=== PATIENT | male | born 1970 | race Caucasian/White ===

== ENCOUNTER → 2019-04-13 16:58 | Outpatient (CLI) | payer MEDICAID, SELFPAY ==
[2019-04-13 17:33] LABS: Basophils # 0.1 K/mm3 (0-0.2); Basophils % 0.8 % (0.1-2.0); Eosinophils # 0.3 K/mm3 (0.0-0.4); Eosinophils % 3.9 % (0.1-12.0); Hematocrit 50.4 % (42.0-52.0); Hemoglobin 16.5 g/dL (14.1-18.0); Lymphocytes # 2.8 K/mm3 (0.7-4.5); Lymphocytes % 35.2 % (10-50); Mean Corpuscular HGB Conc 32.8 g/dL (31.8-35.4); Mean Corpuscular Hemoglobin 32.1 pg (27.0-31.2); Mean Corpuscular Volume 97.8 fl (80-94); Mean Platelet Volume 8.2 fl (7.4-10.4); Monocytes # 0.7 K/mm3 (0.1-1.0); Monocytes % 9.1 % (1.7-9.3); Neutrophils # 4.1 K/mm3 (1.8-7.8); Neutrophils % 51.1 % (37.0-80.0); Platelet Count 288 K/mm3 (142-424); Red Blood Count 5.15 M/mm3 (4.60-6.20); Red Cell Distribution Width 12.7 % (11.5-17.5)
[2019-04-13 18:30] LABS: Alanine Aminotransferase 31 U/L (12-78); Albumin Level 3.5 gm/dL (3.4-5.0); Alkaline Phosphatase 94 U/L (46-116); Anion Gap 12.2 mEq/L (5-15); Aspartate Amino Transferase 20 U/L (15-37); Bilirubin,Total 0.4 mg/dL (0.2-1.0); Blood Urea Nitrogen 13 mg/dL (7-18); Carbon Dioxide 30 mmol/L (21.0-32.0); Chloride 104 mmol/L (98-107); Chol/HDL Ratio 5.2 (1-3.5); Cholesterol 250 mg/dL (140-200); Creatinine,Serum 0.95 mg/dL (0.70-1.30); Estimated Glomerular Filt Rate 84 ml/min (>60); GFR (African American) 102 ML/MIN (>60); Globulin 3.5 gm/dl (1.3-3.2); Glucose 108 mg/dL (74-106); HDL Cholesterol 48 mg/dL (27-67); LDL Cholesterol 142 mg/dL (0-130); Potassium 4.2 mmoL/L (3.5-5.1); Sodium 142 mmol/L (136-145); T4 (Thyroxine) 8.7 ug/dl (4.7-13.3); Thyroid Stimulating Hormone 1.55 uIU/ml (0.358-3.740); Triglycerides 301 mg/dL (30-200); VLDL Cholesterol 60 mg/dL (0-40)
[2019-04-15 12:31] LABS: PSA, Free 0.05 ng/mL; Prostate Specific Ag 0.2 ng/mL (0.0-4.0); Vitamin D 25 Hydroxy 11.1 ng/mL (30.0-100.0)
== END ==
PROVIDERS: Visit Provider Nurse Practitioner Family
DX: I10 Essential (primary) hypertension (principal); E55.9 Vitamin D deficiency, unspecified; M54.16 Radiculopathy, lumbar region; G89.29 Other chronic pain; F17.200 Nicotine dependence, unspecified, uncomplicated; Z79.899 Other long term (current) drug therapy; Z12.5 Encounter for screening for malignant neoplasm of prostate
CPT/HCPCS: 80053; 80061; 82652; 84153; 84154; 84436; 84443; 85025

== ENCOUNTER → 2020-06-01 06:12 | Outpatient (CLI) | payer MEDICAID, SELFPAY ==
--- NOTE | 2020-06-01 | CA_ITS ---
APPROVED REPORT Exam: Exercise Treadmill Technologist: Allie Anne, Ht: 5 ft 7 in Wt: 259 lbs BSA: 2.26 m2 HR: 80 bpm BP: 131/84 mmHg Rhythm: NSR,RBBB Medical History Medical History: HTN, Hyperlipidemia, Smoking Medications: Gabapentin,,,,, Atorvastatin,,,,, Lisinopril/HCTZ,,,,, Vit D3,,,,, Suboxone,,,,, Allergies: No known drug allergies Cardiac Risk Factors: HTN, Hyperlipidemia, Smoking, FHX of CAD Stress Test Details Test: Jc HR Resting HR: 88 bpm Max Heart Rate (APMHR): 169.959926 bpm Max HR Achieved: 160 bpm Target HR (85% APMHR): 143.601616 bpm % of APMHR: 94.67 BP Resting BP: 131/84 mmHg Max BP: 215/80 mmHg Recovery BP: 176.0/88.0 mmHg ECG Resting ECG: NSR,RBBB Clinical Exercise duration: 07:00 min Highest Stage Achieved: Exercise capacity: 10.1 METs Stress ECG Conclusion EXERCISED 7:00 PN JC PROTOCOL WITH MAX HEART RATE 152 BPM WHICH IS 90% OF PM FOR AGE. MAX BP 215/80. METS = 10.1. TEST STOPPED DUE TO SOA AND LEG FATIGUE. NO CP. NO ARRHYTHMIAS/ECTOPY. WITHIN NORMAL ST RESPONSE TO EXERCISE. NORMAL GXT WITH REDUCED SENSITIVITY DUE TO BASELINE RBBB. MYOVIEW IMAGES REPORTED SEPARATELY. Test Summary . Sitting . . . . . . Cardiolite injected . Stop exercise at 07:00 . . . . . . Electronically signed by : Bo Sandoval, 06/01/2020 12:01:45
--- NOTE | 2020-06-01 06:13 | NM_ITS ---
APPROVED REPORT Exam: Nuclear Stress Test Indication: Chest pain..short of breath..palpitation..fatigue Patient Location: Outpatient Stress Tech: Sarah Omid LA Tech:ANGELES Golden RT(R)(N) Ht: 5 ft 7 in Wt: 250 lbs HR: 80 bpm BP: 131/84 mmHg BSA: 2.22 m2 BMI: 39.1 History: Chest pain..short of breath..palpitation..fatigue Procedure: Patient exercised on Jc protocol 7 minutes and sec, resting heart rate 80 bpm, resting blood pressure 131/84 mmHg, with exercise maximum heart rate achived was 152 bpm which is 90 % of the maximum predicted heart rate and blood pressure was 215/80 mmHg. Patient denied any complaint of chest pain. Patient has Good exercise capacity, achieved 10.1 METs of workload on treadmill, the blood pressure response to exercise was Hypertensive. Electrocardiogram Resting electrocardiogram showed sinus rhythm right bundle branch block, with exercise there is less than 1.[address] segment depression noted from the baseline EKG. The EKG portion of the exercise Myoview is negative for ischemia. Cardiac Stress and Resting SPECT Images: Cardiac Stress and Resting SPECT images were obtained using technetium 99m Myoview 29.8 mCi stress and 10.52 mCi at rest. Gated SPECT for analysis of segmental wall motion and calculation of the ejection fraction also done, prone images were also obtained. Cardiac stress and resting SPECT images show uniform myocardial activity without segmental perfusion abnormality, computer derived ejection fraction is 60% with no regional wall motion abnormality, right ventricle is mildly enlarged with normal contractility. Conclusion: 1. The EKG portion of the exercise Myoview is negative for ischemia, patient has good exercise capacity achieved 10.1 mets of workload on treadmill, the blood pressure response to exercise was hypertensive, there was no exercise-induced chest discomfort. 2. No scintigraphic evidence of reversible ischemia seen, computer derived ejection fraction is 60% with no regional wall motion abnormality, right ventricle is mildly enlarged with normal contractility. 3. Normal exercise Myoview study. Electronically signed by : Bo Sandoval, 06/01/2020 12:07:56
--- NOTE | 2020-06-01 09:01 | HMH.ITSHM ---
Current Home Medications as stated by this patient Travis Maldonado SR or home office representative. [] lisinopril gabapentin atorvastatin
== END ==
PROVIDERS: PCP Nurse Practitioner Family; Visit Provider Nurse Practitioner Family
DX: R07.9 Chest pain, unspecified (principal); R06.02 Shortness of breath; R53.83 Other fatigue; Z82.49 Family history of ischemic heart disease and other diseases of the circulatory system
CPT/HCPCS: 78452; 93017; 93306; A9502

== ENCOUNTER → 2020-06-09 10:50 | Outpatient (CLI) | payer MEDICAID, SELFPAY ==
--- NOTE | 2020-06-09 10:50 | CA_ITS ---
APPROVED REPORT EXAM: Comprehensive 2D, Doppler, and color-flow Echocardiogram Mobile Mechanic: Kristen Whitmore RT(R) Ht: 5 ft 7 in Wt: 250lbs BSA: 2.22 BP: 131/84 mmHg Indications: CP, fatigue, SOB, weight gain 2D Dimensions LVOT 2.04 cm (M/F) 1.5-2.5 LVEF (Floyd's) 64.00 % M: 52 - 72 LV Volume 91.20 mL M: 62 - 150 LV Volume Index 41.08 mL/m2 M: 34 - 74 M-Mode Dimensions RVDd 2.82 cm (0.9-2.6) LA Diam 3.83 cm (1.9-4.0) LVDd 4.67 cm (3.5-5.7) Ao Diam 3.07 cm (2.0-3.7) LVDs 3.34 cm (3.5-5.7) IVSd 1.17 cm (0.6-1.1) PWd 0.81 cm (0.6-1.1) EF (Teich) 55.00% FS 28.50% EDV (Teich) 100.80 mL ESV (Teich) 45.40 mL LV Diastology E Decel Time 150.00 (160-240 msec) E/A Ratio 0.7 MED E' 10.30 (< 7 cm/sec) E'/MED E' Ratio 6.66 (>14) LAT E' 11.10 (<10 cm/sec) E/LAT E' Ratio 6.18 (>14) Mitral Valve MV E Max Ronaldo. 69.00 (40-130 cm/s) MV A Velocity 96.00 (40-130 cm/s) E/A Ratio 0.71 MV Decel. Time 150.00 (160-240 ms) MV PHT 44.00 ms Left Ventricle Left atrium is normal size, left ventricle is normal size, there is no concentric left ventricular hypertrophy, visually estimated ejection fraction 55% with no regional wall motion abnormality, diastolic parameters are inconclusive. Right Ventricle Right atrium and right ventricle are normal size and contractility. Aortic Valve Aortic valve is grossly normal, there is no aortic stenosis or aortic insufficiency. Mitral Valve Mitral valve is grossly normal, there is trace mitral regurgitation. Tricuspid Valve Tricuspid valve grossly normal, there is trace tricuspid regurgitation, tricuspid regurgitation jet velocity is inadequate for calculation of the right ventricular systolic pressure. Pulmonic Valve Pulmonic valve is poorly visualized. Great Vessels Aortic root is normal size. Pericardium No significant pericardial effusion noted. Conclusion 1. Normal left ventricular size, preserved left ventricular systolic function, visually estimated ejection fraction 55% with no regional wall motion abnormality, diastolic parameters are inconclusive. 2. Trace mitral and tricuspid regurgitation. 3. No significant pericardial effusion noted. Electronically signed by : Bo Sandoval, 06/09/2020 15:28:24
== END ==
PROVIDERS: PCP Nurse Practitioner Family; Visit Provider Nurse Practitioner Family
DX: R07.9 Chest pain, unspecified (principal); I10 Essential (primary) hypertension; R53.83 Other fatigue
CPT/HCPCS: 93306

== ENCOUNTER → 2020-06-20 08:48 | Outpatient (CLI) | payer MEDICAID, SELFPAY ==
--- NOTE | 2020-06-20 08:55 | XR_ITS ---
PROCEDURE: XR WRIST RT MIN 3V CLINICAL INDICATION: right wrist pain/ CTS COMPARISON: No exams were available for comparison FINDINGS: No acute fractures or dislocations. Bone density is normal. The distal radioulnar and radiocarpal alignment are within normal limits. No evidence of erosive changes or significant degenerative changes. There is minor soft tissue swelling adjacent to the wrist joint. IMPRESSION: Minor soft tissue swelling adjacent to the wrist joint. No other acute abnormality. Dictated by: Claudine Wong 06/20/2020 11:22 Claudine Wong in OV 06/20/2020 11:22
--- NOTE | 2020-06-20 08:55 | XR_ITS ---
PROCEDURE: XR WRIST LT MIN 3V CLINICAL INDICATION: left wrist pain/ CTS COMPARISON: No exams were available for comparison FINDINGS: No acute fractures or dislocations. Bone density is normal. Minor degenerative changes of the distal radioulnar joint without osteophyte formation. Radiocarpal alignment is within normal limits. No evidence of erosions are noted. The carpal bones are unremarkable. Minor soft tissue swelling adjacent to the wrist joint. IMPRESSION: Minor soft tissue swelling adjacent to the wrist joint. Minor degenerative changes. Dictated by: Claudine Wong 06/20/2020 11:23 Claudine Wong in OV 06/20/2020 11:23
== END ==
PROVIDERS: PCP Nurse Practitioner Family; Visit Provider Orthopaedic Surgery
DX: M25.532 Pain in left wrist (principal); M25.531 Pain in right wrist; R20.0 Anesthesia of skin; R20.2 Paresthesia of skin
CPT/HCPCS: 73110

== ENCOUNTER → 2021-03-20 18:11 | Outpatient (CLI) | payer MEDICAID, SELFPAY ==
[2021-03-20 19:08] LABS: Basophils # 0.1 K/mm3 (0-0.2); Basophils % 1.3 % (0.1-2.0); Eosinophils # 0.4 K/mm3 (0.0-0.4); Eosinophils % 3.9 % (0.1-12.0); Hematocrit 53.2 % (42.0-52.0); Hemoglobin 17.2 g/dL (14.1-18.0); Lymphocytes % 30.2 % (10-50); Mean Corpuscular HGB Conc 32.4 g/dL (31.8-35.4); Mean Corpuscular Hemoglobin 30.5 pg (27.0-31.2); Mean Corpuscular Volume 94.2 fl (80-94); Mean Platelet Volume 8.4 fl (7.4-10.4); Monocytes # 0.8 K/mm3 (0.1-1.0); Monocytes % 7.8 % (1.7-9.3); Neutrophils # 5.7 K/mm3 (1.8-7.8); Neutrophils % 56.8 % (37.0-80.0); Platelet Count 304 K/mm3 (142-424); Red Blood Count 5.64 M/mm3 (4.60-6.20); Red Cell Distribution Width 13.4 % (11.5-17.5)
[2021-03-20 20:04] LABS: Alanine Aminotransferase 28 U/L (12-78); Albumin Level 4.3 g/dl (3.5-5.0); Albumin/Globulin Ratio 1.4 (1.1-1.8); Alkaline Phosphatase 101 U/L (38-126); Anion Gap 12.2 mEq/L (5-15); Aspartate Amino Transferase 31 U/L (17-59); Bilirubin,Total 0.3 mg/dl (0.2-1.3); Blood Urea Nitrogen 13 mg/dl (9-20); Calcium 9.6 mg/dl (8.4-10.2); Carbon Dioxide 26 mmol/L (22.0-30.0); Chloride 103 mmol/L (98-107); Chol/HDL Ratio 6.3 (1-3.5); Cholesterol 246 mg/dl (140-200); Estimated Glomerular Filt Rate 141 ml/min (>60); GFR (African American) 171 ML/MIN (>60); Globulin 3.1 g/dL (1.3-3.2); Glucose 98 mg/dl (74-100); HDL Cholesterol 39 mg/dl (40-60); Potassium 4.2 mmoL/L (3.5-5.1); Sodium 137 mmol/L (136-145); Total Protein,Serum 7.4 g/dl (6.3-8.2); Triglycerides 384 mg/dl (30-150); VLDL Cholesterol 77 mg/dL (0-40)
[2021-03-20 20:21] LABS: 25-OH Vitamin D, Total 41.2 ng/mL (30-100)
[2021-03-20 20:23] LABS: T4 (Thyroxine) 9.3 ug/dl (5.53-11.0)
[2021-03-20 20:37] LABS: Prostate Specific Ag Screen 0.3 ng/ml (0.0-4.0); Thyroid Stimulating Hormone 1.09 uIU/mL (0.465-4.68)
[2021-03-20 22:16] LABS: Benzodiazepines Screen,Urine Negative ng/ml (<200)
[2021-03-20 22:18] LABS: Cannabinoid Screen,Urine Negative ng/ml (<50); Methadone Screen,Urine Negative ng/ml (<300)
[2021-03-20 22:19] LABS: Cocaine Screen,Urine Negative ng/ml (<300); Opiate Screen,Urine Negative ng/ml (<300)
[2021-03-20 22:20] LABS: Phencyclidine Screen,Urine Negative ng/ml (<25)
[2021-03-20 22:23] LABS: Amphetamine/Metha Screen,Urine Negative ng/ml (<1000); Barbiturates Screen,Urine Negative ng/ml (<200)
== END ==
PROVIDERS: Visit Provider Nurse Practitioner Family
DX: E66.9 Obesity, unspecified (principal); Z68.41 Body mass index [BMI] 40.0-44.9, adult
CPT/HCPCS: 80053; 80061; 80305; 82306; 84436; 84443; 85025; G0103

== ENCOUNTER 2022-07-28 15:19 | Emergency (ER) | payer MEDICAID, SELFPAY ==
--- NOTE | 2022-07-28 15:26 | XR_ITS ---
PROCEDURE INFORMATION: Exam: XR Right Knee Exam date and time: 07/28/2022 3:51 PM Age: 52 years old Clinical indication: Injury or trauma; Other: Twisted knee yesterday; Work related; Blunt trauma; Patient HX: Injured right knee one month ago, twisted right knee yesterday. ; Additional info: Pain TECHNIQUE: Imaging protocol: Radiologic exam of the right knee. Views: 3 views. COMPARISON: No relevant prior studies available. FINDINGS: Bones/joints: Small suprapatellar effusion. Soft tissues: Mild soft tissue swelling superficial to the medial knee compartment. IMPRESSION: No evidence of acute osseous injury.
[2022-07-28 16:24] VITALS: BP 131/84; PULSE 83; RESP 16; TEMP 36.7; O2SAT 97; BMI 36.0
--- NOTE | 2022-07-28 17:04 | EXP.UTC ---
Discharge Plan Disposition Patient Disposition: Home, Self-Care Condition: Good Prescriptions Prescriptions: No Action gabapentin 600 mg tablet 600 mg PO TID 30 Days Qty: 90 3RF buprenorphine-naloxone [Suboxone] 8-2 mg film 1 film BUCCAL DAILY ergocalciferol (vitamin D2) 1,250 mcg (50,000 unit) capsule See Rx Instructions .ROUTE .COMPLEX Qty: 7 3RF Dose Instruction: TAKE ONE CAPSULE BY MOUTH EVERY WEEK Rx Instructions: TAKE ONE CAPSULE BY MOUTH EVERY WEEK cholecalciferol (vitamin D3) 50 mcg (2,000 unit) capsule 2,000 unit PO DAILY Qty: 90 2RF tamsulosin [Flomax] 0.4 mg capsule 0.4 mg PO DAILY Qty: 90 2RF phentermine [Adipex-P] 37.5 mg tablet 37.5 mg PO DAILY 30 Days Qty: 30 0RF Rx Instructions: must administer 30 minutes before or 1-2 hours after breakfast Referrals Follow up/Referrals: Vignesh Arias APRN [Primary Care Provider] - See instructions Activity Restrictions/Add. Instructions Additional Instructions/Restrictions: Weightbearing as tolerated rest Ice with cold pack for 20 minutes remove may repeat for comfort every hour Elevate with leg above your heart as much as possible to help reduce swelling and therefore pain Ibuprofen every 6 hours as needed for pain or inflammation. If needs something more you can take Tylenol every 4 hours as needed as long as her primary care has told he was okayed for you to take both. If improving any do not need to follow-up you can bring begin exercising 2-3 weeks after injury. Follow-up immediately if new or worsening symptoms or no noticeable improvement over the next 3-5 days. call ortho Clinical Impressions Clinical Impression: Acute knee pain Instructions Patient Instructions: DI for Knee Pain Discharge ED Provider: Juan José ([facility] [place])M[facility] [place] HPI General Stated complaint: [id number] right knee pain Mode of Arrival: Ambulatory Source of Information: Patient Limitations: No Limitations Time Seen by Provider: 07/28/22 17:05 Description of Symptoms (Recalled from Triage Doc. by RN): rt knee pain, pt states he twisted his knee yesterday and having pain. pt states he did the same thing about a month ago and thinks he flared it up HEENT Symptoms (Recalled from RN notes): No Resp Symptoms (Recalled from RN notes): No Skin Symptoms (Recalled from RN notes): No MS Symptoms (Recalled from RN notes): Yes Functional Status (Recalled from RN notes): wnl History of Present Illness Provider Complaint: 52 yr old male presents for rt knee pain, pt states he twisted his knee yesterday and having pain. pt states he did the same thing about a month ago and thinks he flared it up Related Data Home Medications Medication Instructions Recorded Confirmed buprenorphine 8 mg-naloxone 2 mg 1 film buccal DAILY 04/13/19 07/05/22 sublingual film (Suboxone) Previous Rx's Medication Instructions Recorded ergocalciferol (vitamin D2) 1,250 See Rx Instructions .Route 08/24/21 mcg (50,000 unit) capsule .COMPLEX #7 caps cholecalciferol (vitamin D3) 50 2,000 unit PO DAILY #90 caps 03/11/22 mcg (2,000 unit) capsule tamsulosin 0.4 mg capsule (Flomax) 0.4 mg PO DAILY #90 caps 03/11/22 gabapentin 600 mg tablet 600 mg PO TID 30 days #90 tabs 06/07/22 phentermine 37.5 mg tablet 37.5 mg PO DAILY 30 days #30 tabs 07/05/22 (Adipex-P) Allergies Allergy/AdvReac Type Severity Reaction Status Date / Time No Known Allergies Allergy Verified 07/28/22 16:27 Worker's Comp Is this a Worker's Comp case?: No [facility] Disclaimer: The information contained in this section may have been updated after the patient was seen, as this information can be updated by other users. Social History , GUITAR TEACHER) Smoking Status: Current every day smoker tobacco type: cigarettes packs per day: 1 alcohol intake: former substance use type: opiates current occupational status: other Travel in the last
[2022-07-28 17:20] VITALS: BP 131/84; PULSE 83; RESP 16; TEMP 36.7
== END 2022-07-28 17:21 | disposition home or self-care (01) ==
PROVIDERS: Emergency Provider Nurse Practitioner Family; PCP Nurse Practitioner Family
DX: M25.561 Pain in right knee (principal); F17.210 Nicotine dependence, cigarettes, uncomplicated; X50.1XXA Overexertion from prolonged static or awkward postures, initial encounter
CPT/HCPCS: 73562; 99212; 99214; G0463

== ENCOUNTER → 2022-08-01 23:30 | Outpatient (CLI) | payer MEDICAID, SELFPAY ==
[2022-08-01 18:11] LABS: Basophils # 0.1 K/mm3 (0-0.2); Basophils % 0.7 % (0.1-2.0); Eosinophils # 0.3 K/mm3 (0.0-0.4); Eosinophils % 4.1 % (0.1-12.0); Hematocrit 50.3 % (42.0-52.0); Hemoglobin 16.6 g/dL (14.1-18.0); Lymphocytes # 2.7 K/mm3 (0.7-4.5); Lymphocytes % 33.1 % (10-50); Mean Corpuscular Volume 93.9 fl (80-94); Mean Platelet Volume 7.7 fl (7.4-10.4); Monocytes # 0.6 K/mm3 (0.1-1.0); Monocytes % 7.4 % (1.7-9.3); Neutrophils # 4.4 K/mm3 (1.8-7.8); Neutrophils % 54.7 % (37.0-80.0); Platelet Count 290 K/mm3 (142-424); Red Blood Count 5.35 M/mm3 (4.60-6.20); Red Cell Distribution Width 12.6 % (11.5-17.5); White Blood Count 8.1 K/mm3 (4.8-10.8)
[2022-08-01 18:24] LABS: Alanine Aminotransferase 26 U/L (12-78); Albumin Level 4.4 g/dl (3.5-5.0); Albumin/Globulin Ratio 1.4 (1.1-1.8); Alkaline Phosphatase 81 U/L (38-126); Anion Gap 18.7 mEq/L (5-15); Aspartate Amino Transferase 35 U/L (17-59); Bilirubin,Total 1.3 mg/dl (0.2-1.3); Blood Urea Nitrogen 12 mg/dl (9-20); Calcium 9.2 mg/dl (8.4-10.2); Carbon Dioxide 25 mmol/L (22.0-30.0); Chloride 98 mmol/L (98-107); Chol/HDL Ratio 4.4 (1-3.5); Cholesterol 219 mg/dl (140-200); Estimated Glomerular Filt Rate 118 ml/min (>60); GFR (African American) 143 ML/MIN (>60); Globulin 3.1 g/dL (1.3-3.2); Glucose 87 mg/dl (74-100); HDL Cholesterol 50 mg/dl (40-60); Potassium 4.7 mmoL/L (3.5-5.1); Sodium 137 mmol/L (136-145); Total Protein,Serum 7.5 g/dl (6.3-8.2); Triglycerides 121 mg/dl (30-150); VLDL Cholesterol 24 mg/dL (0-40)
[2022-08-01 18:35] LABS: Direct LDL Cholesterol 141.11 mg/dL (100-129)
[2022-08-01 18:42] LABS: 25-OH Vitamin D, Total 40.4 ng/mL (30-100)
[2022-08-01 18:55] LABS: Prostate Specific Ag Screen 0.3 ng/ml (0.0-4.0)
[2022-08-09 19:09] LABS: Testosterone, Total, LC/MS 356 ng/dL (.)
== END ==
PROVIDERS: PCP Nurse Practitioner Family; Visit Provider Nurse Practitioner Family
DX: I10 Essential (primary) hypertension (principal); R53.83 Other fatigue; M25.561 Pain in right knee; S89.90XA Unspecified injury of unspecified lower leg, initial encounter; E66.9 Obesity, unspecified; Z68.35 Body mass index [BMI] 35.0-35.9, adult; Z12.5 Encounter for screening for malignant neoplasm of prostate
CPT/HCPCS: 80053; 80061; 82306; 84403; 84443; 85025; G0103

== ENCOUNTER → 2022-08-14 14:52 | Outpatient (CLI) | payer MEDICAID, SELFPAY ==
--- NOTE | 2022-08-14 14:52 | MR_ITS ---
FINAL REPORT TECHNIQUE: Multiplanar imaging of the right knee was obtained. CLINICAL HISTORY: R Knee pain injury 6-7 weeks ago felt knee give on lateral side swelling and popping when walking COMPARISON: No previous. FINDINGS: On the sagittal images, anterior and posterior cruciate ligaments appear intact. Quadriceps and patellar tendons appear intact. There is rather extensive abnormal signal identified within the anterior and posterior horns of the lateral meniscus. Large linear tear seen in the posterior horn of the medial meniscus. Linear tear in the posterior horn medial meniscus extends to the margin of the meniscus. Note is made of a minimal osteochondral lesion along the anterior articular surface of the medial femoral condyle, best seen on image #18 of series 6. Medial and lateral collateral ligaments appear intact. Moderate joint effusion is present. Moderate popliteal cyst is present. Popliteal cyst measures approximately 5.9 cm in craniocaudal dimension. IMPRESSION: 1. Full thickness tear posterior horn medial meniscus. 2. Intrasubstance degeneration throughout lateral meniscus. 3. Moderate joint effusion with associated popliteal cyst. Authenticated and ERN
== END ==
PROVIDERS: PCP Nurse Practitioner Family; Visit Provider Nurse Practitioner Family
DX: M25.561 Pain in right knee (principal)
CPT/HCPCS: 73721

== ENCOUNTER → 2022-08-28 15:37 | Outpatient (CLI) | payer MEDICAID, SELFPAY ==
--- NOTE | 2022-08-28 15:41 | XR_ITS ---
FINAL REPORT CLINICAL HISTORY: Pre- op for meniscus tear in knee, hx of high bp, smokes 1 pk per day FINDINGS: There is no evidence of effusion or other pleural disease. The mediastinum has a normal appearance. The cardiac silhouette is unremarkable. IMPRESSION: Unremarkable chest exam. Reviewed, Interpreted and Dictated by Svetlana Cheatham MD Transcribed by Lisa Velazquez Authenticated and . [facility]
--- NOTE | 2022-08-28 16:04 | ECG_ITS ---
APPROVED REPORT Exam: Resting ECG HR:74 bpm ECG Measurements Heart Rate 74 AXES AR 223 P -16 QRSd 162 QRS 116 QT 415 T 12 QTc 442 Conclusion SINUS RHYTHM WITH FIRST DEGREE AV BLOCK RIGHT BUNDLE BRANCH BLOCK [120+ ms QRS DURATION, UPRIGHT V1, 40+ ms S IN I/aVL/V4/V5/V6] LEFT POSTERIOR FASCICULAR BLOCK [QRS AXIS > 109, INFERIOR Q] ABNORMAL ECG UNCONFIRMED REPORT Electronically signed by : Nicola Lao MD 08/29/2022 09:26:24
[2022-08-28 16:45] LABS: Basophils % 0.3 % (0.1-2.0); Eosinophils # 0.1 K/mm3 (0.0-0.4); Eosinophils % 0.5 % (0.1-12.0); Hematocrit 50.5 % (42.0-52.0); Hemoglobin 16.4 g/dL (14.1-18.0); Lymphocytes # 1.8 K/mm3 (0.7-4.5); Lymphocytes % 18.9 % (10-50); Mean Corpuscular HGB Conc 32.6 g/dL (31.8-35.4); Mean Corpuscular Hemoglobin 30.2 pg (27.0-31.2); Mean Corpuscular Volume 92.8 fl (80-94); Mean Platelet Volume 7.7 fl (7.4-10.4); Monocytes # 0.5 K/mm3 (0.1-1.0); Monocytes % 4.9 % (1.7-9.3); Neutrophils % 75.5 % (37.0-80.0); Platelet Count 309 K/mm3 (142-424); Red Blood Count 5.44 M/mm3 (4.60-6.20); Red Cell Distribution Width 13.2 % (11.5-17.5); White Blood Count 9.3 K/mm3 (4.8-10.8)
[2022-08-28 16:49] LABS: Alanine Aminotransferase 27 U/L (12-78); Albumin Level 4.2 g/dl (3.5-5.0); Albumin/Globulin Ratio 1.4 (1.1-1.8); Alkaline Phosphatase 85 U/L (38-126); Anion Gap 14.3 mEq/L (5-15); Aspartate Amino Transferase 26 U/L (17-59); Bilirubin,Total 0.6 mg/dl (0.2-1.3); Blood Urea Nitrogen 15 mg/dl (9-20); Calcium 9.2 mg/dl (8.4-10.2); Carbon Dioxide 28 mmol/L (22.0-30.0); Chloride 101 mmol/L (98-107); Estimated Glomerular Filt Rate 141 ml/min (>60); GFR (African American) 171 ML/MIN (>60); Glucose 131 mg/dl (74-100); Potassium 4.3 mmoL/L (3.5-5.1); Sodium 139 mmol/L (136-145); Total Protein,Serum 7.2 g/dl (6.3-8.2)
[2022-08-28 16:59] LABS: Hemoglobin A1C 5.9 % (4.0-6.0)
== END ==
PROVIDERS: PCP Nurse Practitioner Family; Visit Provider Orthopaedic Surgery
DX: Z01.818 Encounter for other preprocedural examination (principal); S83.241A Other tear of medial meniscus, current injury, right knee, initial encounter
CPT/HCPCS: 36415; 71046; 80053; 83036; 85025; 93005

== ENCOUNTER 2022-09-03 09:58 | Day surgery (SDC) | payer MEDICAID, SELFPAY ==
[2022-09-02 09:13] VITALS: BMI 35.2
[2022-09-03] VITALS (10 sets, daily range): BP systolic 144–165; BP diastolic 74–101; PULSE 18–84; RESP 14–18; TEMP 36.3–43; O2SAT 93–97
--- NOTE | 2022-09-03 10:53 | EXP.ANES.CKL ---
[facility] Disclaimer: The information contained in this section may have been updated after the patient was seen, as this information can be updated by other users. Medical History (Updated 09/02/22 @ 09:06 by Lay Quinones RN) Benign prostatic hyperplasia Hyperlipidemia Hypertension Surgical History (Updated 09/02/22 @ 09:07 by Lay Quinones RN) No significant past surgical history Family History (Updated 09/02/22 @ 09:07 by Lay Quinones RN) Father Family history of myocardial infarction Social History (Updated 09/02/22 @ 09:08 by Lay Quinones RN) Smoking Status: Current every day smoker tobacco type: cigarettes packs per day: 1 alcohol intake: former substance use type: opiates current occupational status: employed Travel in the last 8 weeks: None [facility] Anesthesia Checklist Patient Identification Patient Identification: Arm Band Structural Data Admitted From: Home Planned Operative Procedure/s: Right Knee Arthroscopy, Partial Medial Meniscectomy Consent for Planned Operative Procedure(s) Verified: Yes Verified Documents: Surgical Consent and History and Physical NPO Status Verified Time NPO: 00:00 Additional verifications Anesthesia Reactions: No Hx Blood Transfusions: No Blood Transfusion Reaction: No Airway Assessment C-Spine Mobility Assessed: Yes TMJ Mobility Assessed: Yes Dentition: Dentures-good fit (removed) Neurological Assessment Level of Consciousness: Awake and Alert Anesthesia Plan Anesthesia Risk discussed: Yes Anesthesia Plan: Verified ASA Class: II Anesthesia Type: General
--- NOTE | 2022-09-03 12:39 | EXP.OP.NOTE ---
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 History and exam consistent with an acute medial meniscus tear as seen on MRI. He has been dealing with medial knee pain and mechanical symptoms. Right knee MRI on 08/14 revealed a large horizontal cleavage tear posterior horn and body of the medial meniscus with mild degenerative changes and a moderate effusion. We discussed all the risks, benefits and alternatives to right knee arthroscopy for partial medial meniscectomy. He agreed to proceed and surgical consent form was signed. Operative findings:: Right knee horizontal cleavage tear posterior horn and body medial meniscus. 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 Undersurface flap tear posterior horn of the lateral meniscus as well. Operative note:: The patient was seen in the preoperative holding area. The right knee was marked to confirm the correct operative site. He was seen by anesthesia. He received Ancef 2 g IV prophylactic antibiotics within 1 hour of incision time. He was brought back to the OR. General anesthesia induced without difficulty. Right lower extremity prepped and draped in the usual sterile fashion. Timeout performed to confirm right knee arthroscopy for patient Travis Maldonado. I made an anterior lateral viewing portal with an 11 blade scalpel and arthroscope was introduced in the knee joint. I then made an anteromedial portal localizing this with a spinal needle. This incision was made with an 11 blade scalpel as well and dilated with a trocar. Diagnostic arthroscopy commenced. He was seen to have some mild chondromalacia of the patellofemoral compartment with no full-thickness cartilage loss. There were a lot of loose cartilage pieces in the lateral gutter that were sucked up with a 4.0 mm shaver. Evaluation of the medial compartment revealed a large horizontal cleavage tear posterior horn and body of the medial meniscus. This was treated with the shaver and a resector removing the unstable inferior flap and resecting the posterior horn back to a smooth stable border. This involved removing approximately inner third to half of the posterior horn of the medial meniscus with a smooth transition to intact body the medial meniscus. He also had an area of grade III-IV chondromalacia of the central aspect the medial femoral condyle. The unstable cartilage flaps at the edges of this were debrided with a shaver back to smooth stable border. Cruciate ligaments were seen to be intact. He was placed in the [id number] position and we entered the lateral compartment. The lateral compartment had minimal chondromalacia but there was an undersurface flap tear of the posterior horn of the lateral meniscus. We removed this undersurface flap tear with the 4.0 mm shaver back to a smooth stable border. There was some mild fraying otherwise on the inner edge of the lateral meniscus that was debrided with a shaver as well. At this time arthroscopy instruments were removed from the joint. Arthroscopy fluid suctioned and drained from the joint. Portals were closed with 4-0 Monocryl subcuticular sutures. I injected 20 cc of half percent Naropin from the superolateral approach for local anesthetic. A sterile dressing was applied with Steri-Strips, 4 x 4's, ABD, soft roll and an Polo bandage. Anesthesia was reversed without difficulty. Patient transferred to recovery in stable condition. All sponge and needle counts correct x2. Postoperative plan: He wants to fanny
--- NOTE | 2022-09-03 12:43 | P.PNANES_ITS ---
[facility] Anesthesia Record Part I Anesthesia Record I Intake, IV Amount: 500 Estimated blood loss (mL): 40 Urine output (mL): 0 Blood Pressure: 160/101 SaO2: 93 Pulse Rate: 18 Respiratory Rate: 18 Temperature: 97.4 F Patient is:: Drowsy and Stable Stable to PACU at:: 12:35
--- NOTE | 2022-09-04 07:26 | EXP.ANES.II ---
[facility] Anesthesia Record Part II Anesthesia Record Part II Discharge Time: 13:09 Destination: Surgical Day Care (OP Surgery) PACU nurse assessment reviewed?: Yes Patient Condition:: Good Anesthesia Complications:: None Swallowing reflex intact?: Yes Cyanosis?: No Blood Pressure: 147/85 Pulse Rate: 77 Temperature: 97.3 F Mental Status: Alert & Oriented Pain level:: 8 Nausea and/or vomitting:: None Intake, IV Amount: 0
[2022-09-04 07:27] VITALS: BP 147/85; PULSE 77; TEMP 36.3
== END 2022-09-03 13:38 | disposition home or self-care (01) ==
PROVIDERS: PCP Nurse Practitioner Family; Visit Provider Orthopaedic Surgery
PROC: (CPT 29870; principal; 2022-09-03 11:45)
DX: S83.281A Other tear of lateral meniscus, current injury, right knee, initial encounter (principal); S83.241A Other tear of medial meniscus, current injury, right knee, initial encounter; Y92.69 Other specified industrial and construction area as the place of occurrence of the external cause; W18.41XA Slipping, tripping and stumbling without falling due to stepping on object, initial encounter
CPT/HCPCS: 29880; 96374; J0131; J2405

== ENCOUNTER 2022-11-04 16:00 | Emergency (ER) | payer MEDICAID, SELFPAY ==
[2022-11-04 16:10] VITALS: BP 146/88; PULSE 84; RESP 18; TEMP 36.6; O2SAT 97; BMI 35.6
--- NOTE | 2022-11-04 16:19 | XR_ITS ---
PROCEDURE INFORMATION: Exam: XR Right Knee Exam date and time: 11/04/22 04:20 PM Age: 52 years old Clinical indication: Injury or trauma; Blunt trauma; Prior surgery; Surgery date: <1 month; Surgery type: Right knee arthroscopy prior to fall. TECHNIQUE: Imaging protocol: Radiologic exam of the right knee. Views: 3 views. COMPARISON: MR KNEE RT WO CON 08/14/22 02:58 PM FINDINGS: Bones/joints: Large suprapatellar effusion. Soft tissues: Normal. IMPRESSION: Large suprapatellar effusion.
--- NOTE | 2022-11-04 16:23 | EXP.UTC ---
Discharge Plan Disposition Patient Disposition: Home, Self-Care Condition: Good Prescriptions Prescriptions: New naproxen 500 mg tablet 500 mg PO BID PRN (Reason: pain) Qty: 20 0RF prednisone [prednisone] 20 mg tablet 20 mg PO BID 5 Days Qty: 10 0RF No Action buprenorphine-naloxone [Suboxone] 8-2 mg film 1 film BUCCAL DAILY gabapentin 600 mg tablet 600 mg PO TID phentermine [Adipex-P] 37.5 mg tablet 37.5 mg PO DAILY Rx Instructions: must administer 30 minutes before or 1-2 hours after breakfast tamsulosin [Flomax] 0.4 mg capsule 0.4 mg PO DAILY ergocalciferol (vitamin D2) 1,250 mcg (50,000 unit) capsule See Rx Instructions .ROUTE .COMPLEX Rx Instructions: TAKE ONE CAPSULE BY MOUTH EVERY WEEK cholecalciferol (vitamin D3) 50 mcg (2,000 unit) capsule 2,000 unit PO DAILY aspirin 325 mg tablet 325 mg PO DAILY Qty: 14 0RF Rx Instructions: Take w breakfast for 2 weeks starting 09/04 for DVT prophylaxis s/p R knee scope Referrals Follow up/Referrals: Vignesh Arias APRN [Primary Care Provider] - See instructions Activity Restrictions/Add. Instructions Additional Instructions/Restrictions: *weight bearing as tolerated *RICE, Rest the extremity, Ice 15-20 minutes 3-4 times daily, Compress- wear the polo wrap as discussed as much as possible to help reduce swelling and pain, Elevate the extremity when at rest *Polo wrap is for support and help control swelling, use it except in the shower. Be sure that is not to tight but not to loose either *Elevate when resting? *Naproxen every 12 hours as needed for pain an inflammation. If need something more can take Tylenol in between doses of Naproxen to help Immediately follow up with your family doctor for new or worsening of symptoms, or no noticeable improvement over the next 3-5 days Follow up with Orthopedics Dr ROBERTS Clinical Impressions Clinical Impression: Effusion of knee joint Qualifiers: Laterality: right Qualified Code(s): M25.461 - Effusion, right knee Instructions Patient Instructions: DI for Knee Effusion, How to Apply an Polo Wrap Discharge ED Provider: Alondra Villeda [facility] [place] General Stated complaint: [id number] right knee pain Mode of Arrival: Ambulatory Source of Information: Patient Limitations: No Limitations Time Seen by Provider: 11/04/22 16:23 Description of Symptoms (Recalled from Triage Doc. by RN): PATIENT C/O SWELLING TO RIGHT KNEE AFTER FALLING ON FRIDAY HEENT Symptoms (Recalled from RN notes): No Resp Symptoms (Recalled from RN notes): No Skin Symptoms (Recalled from RN notes): No MS Symptoms (Recalled from RN notes): Yes Functional Status (Recalled from RN notes): WNL History of Present Illness Provider Complaint: Patient states that he had surgery in August due to a Meniscus tear and he was in his garage on and he slipped and fell and twisted his right knee again States that since then he has been having swelling and pain in his knee so today when it was still bothering him he came in to get it checked Related Data Home Medications Medication Instructions Recorded Confirmed buprenorphine 8 mg-naloxone 2 mg 1 film buccal DAILY addiction 04/13/19 09/25/22 sublingual film (Suboxone) cholecalciferol (vitamin D3) 50 2,000 unit PO DAILY Supplement 09/02/22 09/25/22 mcg (2,000 unit) capsule ergocalciferol (vitamin D2) 1,250 See Rx Instructions .Route 09/02/22 09/25/22 mcg (50,000 unit) capsule .COMPLEX Supplement gabapentin 600 mg tablet 600 mg PO TID Pain 09/02/22 09/25/22 phentermine 37.5 mg tablet 37.5 mg PO DAILY Appetite 09/02/22 09/25/22 (Adipex-P) suppressant tamsulosin 0.4 mg capsule (Flomax) 0.4 mg PO DAILY prostate 09/02/22 09/25/22 Previous Rx's Medication Instructions Recorded aspirin 325 mg tablet 325 mg PO DAILY #14 tabs 09/03/22 naproxen 500 mg tablet 500 mg PO BID PRN pain #20 tabs 11/04/22 prednisone 20 mg tablet 20 mg PO
[2022-11-04 17:33] VITALS: BP 146/88; PULSE 84; RESP 18; TEMP 36.6; O2SAT 97
== END 2022-11-04 17:42 | disposition home or self-care (01) ==
PROVIDERS: Emergency Provider Nurse Practitioner; PCP Nurse Practitioner Family
DX: M25.561 Pain in right knee (principal); M25.461 Effusion, right knee; I10 Essential (primary) hypertension; E78.5 Hyperlipidemia, unspecified; F17.210 Nicotine dependence, cigarettes, uncomplicated; W01.10XA Fall on same level from slipping, tripping and stumbling with subsequent striking against unspecified object, initial encounter
CPT/HCPCS: 73562; 99212; 99214; G0463

== ENCOUNTER → 2022-12-02 16:06 | Outpatient (CLI) | payer MEDICAID, SELFPAY ==
--- NOTE | 2022-12-02 16:16 | MR_ITS ---
PROCEDURE INFORMATION: Exam: MR Right Lower Extremity Joint Without Contrast, Knee Exam date and time: 12/02/2022 4:59 PM Age: 52 years old Clinical indication: Pain; Knee; Right; Prior surgery; Surgery date: 1-6 months; Surgery type: Unknown; Additional info: RT knee pain. Twisted knee 2 months ago. Pain inferior to patella. Prior surgery September 03 2022. No injury or trauma TECHNIQUE: Imaging protocol: Magnetic resonance imaging of the right lower extremity joint without contrast. Exam focused on the knee. COMPARISON: 1. MR KNEE RT WO CON 08/14/2022 2:58 PM 2. CR XR KNEE RT 3V 11/04/2022 4:20 PM 3. CR XR KNEE RT 3V 07/28/2022 3:51 PM FINDINGS: Bones/joints: A large joint effusion involves the knee. There is no acute fracture or dislocation. No aggressive bone lesions are present. There is grade II (out of IV) low-grade partial-thickness cartilage loss involving the medial compartment with a superimposed 1 x 0.7 cm focus of full-thickness cartilage loss involving the medial femoral condyle weight-bearing surface. There is no underlying subchondral edema. Abnormal signal involves the femoral trochlea cartilage centrally in a 1 x 1.6 cm region where the cartilage approaches fluid signal intensity and is potentially delaminated as suggested by near fluid intensity between the cartilage in bone (series 3/image 13, series 4/image 12). Previously seen subchondral edema involving the posterior aspect of the medial femoral condyle continues to suggest overlying cartilage damage but has decreased in severity and may indicate interval cartilage repair (series 3/images 13-14). Previously seen cartilage irregularity along the anterior aspect of the medial femoral condyle is poorly delineated on this study and may have been repaired. Periarticular cysts: A moderate-sized popliteal cyst is present. Medial meniscus: Horizontal re-tearing involves the body and posterior horn of the medial meniscus with abnormal signal extending to both the superior and inferior meniscal surfaces. The diminutive size of the medial meniscus with apical truncation suggests prior partial meniscectomy. Lateral meniscus: An extensive tear involves the lateral meniscus. This predominantly horizontal tear extends to the apex of the anterior horn and inferior surface of the body/posterior horn. Anterior cruciate ligament: The anterior cruciate ligament is intact. Posterior cruciate ligament: The posterior cruciate ligament is intact. Medial capsule and supporting structures: The medial collateral ligament is intact. Lateral capsule and supporting structures: The lateral collateral ligament complex is intact. Extensor mechanism of knee: No tear. Variable signal involving the extensor mechanism on the sagittal sequence is likely due to magic angle artifact. Soft tissues: A moderate amount of edema involves the anterior knee subcutaneous fat. Micrometallic artifact in the soft tissues is consistent with interval arthroscopic surgery. IMPRESSION: 1. Horizontal re-tearing of the medial meniscus superimposed on presumed prior partial medial meniscectomy. 2. Horizontal tear involving the anterior horn, body, and posterior horn of the lateral meniscus. 3. Focus of grade IV (out of IV) full-thickness cartilage loss measuring 1 x 0.7 cm involving the medial femoral condyle weight-bearing surface, with adjacent grade II low-grade partial-thickness cartilage loss involving the medial joint compartment. 4. Abnormal femoral trochlea cartilage in a 1 x 1.6 cm region where there is potential cartilage delamination. 5. Large knee joint effusion. 6. Moderate popliteal cyst.
== END ==
PROVIDERS: PCP Nurse Practitioner Family; Visit Provider Orthopaedic Surgery
DX: M25.561 Pain in right knee (principal); S83.271D Complex tear of lateral meniscus, current injury, right knee, subsequent encounter
CPT/HCPCS: 73721

== ENCOUNTER → 2023-03-11 14:22 | Outpatient (CLI) | payer MEDICAID, SELFPAY ==
--- NOTE | 2023-03-11 14:23 | CA_ITS ---
APPROVED REPORT EXAM: Comprehensive 2D, Doppler, and color-flow Echocardiogram Netsuite Developer: Cindy Jamison, RUTHY, RVS Ht: 5 ft 7 in Wt: 237lbs BSA: 2.17 BP: 138/88 mmHg Indications: SOB, Smoker, CP, Fatigue, HTN 2D Dimensions Aortic Root 3.04 cm LVEF (Floyd's) 55.40 % Left Atrium 3.92 cm LV Volume 104.60 mL RVID Base (AP4) 3.18 cm (M/F) 2.5-4.1 LV Volume Index 47.264746 mL/m2 M: 34 - 74 LVOT 1.88 cm (M/F) 1.5-2.5 LA Volume 63.20 mL LA Volume Index 28.332956 mL/m2 (M/F) 16-34 EF AP4 55.20 % EF AP2 55.2 % EF BP 55.4 % GL Strain -15.3 % M-Mode Dimensions RVDd 1.97 cm (0.9-2.6) LVDd 5.31 cm (3.5-5.7) Ao Diam 3.37 cm (2.0-3.7) LVDs 2.70 cm (3.5-5.7) IVSd 1.21 cm (0.6-1.1) PWd 0.84 cm (0.6-1.1) EF (Teich) 80.10% EPSs 0.97 cm FS 49.20% EDV (Teich) 135.90 mL TAPSE 1.66 (<1.7) ESV (Teich) 27.00 mL LV Diastology E Decel Time 308 (160-240 msec) E/A Ratio 0.86 MED E' 8.8 (>= 7 cm/sec) MED A' 11.60 cm/s E'/MED E' Ratio 9.35 (<= 14) LAT E' 9.9 (>= 10 cm/sec) LAT A' 11.80 cm/s E/LAT E' Ratio 8.31 (<= 14) Aortic Valve LVOT Max 113.0 (70-110 cm/s) BRENNAN Index 0.93 cm2/m2 LVOT VTI 18.55 cm AoV Peak Ronaldo. 156.0 (50-130 cm/s) AO Mean GR. 4.90 (<5 mmHg) AO VTI 25.6 (18-25 cm) BRENNAN (VTI) 2.01 (2.5-4.5 cm2) Mitral Valve MV E Max Ronaldo. 82.0 (40-130 cm/s) MV A Velocity 96.0 (40-130 cm/s) E/A Ratio 0.86 MV Decel. Time 308 (160-240 ms) Left Ventricle The left ventricle is normal size. The left ventricular systolic function is normal. The left ventricular ejection fraction is within the normal range. There is normal left ventricular wall thickness. There is normal LV segmental wall motion. The left ventricular diastolic function is normal. LVEF is 55%. Right Ventricle The right ventricle is normal size. The right ventricular systolic function is normal. Atria The left atrium size is normal. The right atrium size is normal. There is no Doppler evidence of interatrial shunt. Aortic Valve The aortic valve is normal in structure. There is no aortic valvular stenosis. No aortic regurgitation is present. Mitral Valve The mitral valve is normal in structure. No evidence of mitral valve stenosis. Trace mitral regurgitation. Tricuspid Valve The tricuspid valve leaflets are thin and pliable. Trace tricuspid regurgitation. There is insufficient TR jet to estimate RVSP. Pulmonic Valve The pulmonary valve is normal in structure. Trace pulmonic regurgitation. Great Vessels The aortic root is normal in size. The ascending aorta is normal in size. IVC is normal in size and collapses >50% with inspiration. Pericardium There is no pericardial effusion. Other Information Study Quality: Fair Conclusion Normal biventricular systolic function. No significant valvular stenosis or regurgitation. Electronically signed by : Anita Mcnally MD 03/12/2023 23:47:12
== END ==
PROVIDERS: PCP Nurse Practitioner Family; Visit Provider Nurse Practitioner Family
DX: R06.02 Shortness of breath (principal)
CPT/HCPCS: 93306

== ENCOUNTER 2023-09-09 18:00 | Outpatient (CLI) | payer MEDICAID, SELFPAY ==
[2023-09-09 19:23] LABS: Basophils % 0.5 % (0.1-2.0); Eosinophils # 0.3 K/mm3 (0.0-0.4); Eosinophils % 4.2 % (0.1-12.0); Hematocrit 49.6 % (42.0-52.0); Hemoglobin 16.2 g/dL (14.1-18.0); Lymphocytes # 2.4 K/mm3 (0.7-4.5); Lymphocytes % 33.7 % (10-50); Mean Corpuscular HGB Conc 32.7 g/dL (31.8-35.4); Mean Corpuscular Hemoglobin 31.5 pg (27.0-31.2); Mean Corpuscular Volume 96.4 fl (80-94); Mean Platelet Volume 8.1 fl (7.4-10.4); Monocytes # 0.5 K/mm3 (0.1-1.0); Monocytes % 7.1 % (1.7-9.3); Neutrophils # 3.8 K/mm3 (1.8-7.8); Neutrophils % 54.5 % (37.0-80.0); Platelet Count 267 K/mm3 (142-424); Red Blood Count 5.15 M/mm3 (4.60-6.20)
[2023-09-09 19:32] LABS: Alanine Aminotransferase 37 U/L (12-78); Albumin/Globulin Ratio 1.3 (1.1-1.8); Alkaline Phosphatase 76 U/L (38-126); Anion Gap 11.7 mEq/L (5-15); Aspartate Amino Transferase 39 U/L (17-59); Blood Urea Nitrogen 15 mg/dl (9-20); Calcium 9.4 mg/dl (8.4-10.2); Carbon Dioxide 29 mmol/L (22.0-30.0); Chloride 103 mmol/L (98-107); Chol/HDL Ratio 5.1 (1-3.5); Cholesterol 236 mg/dl (140-200); Estimated Glomerular Filt Rate 118 ml/min (>60); GFR (African American) 142 ML/MIN (>60); Glucose 135 mg/dl (74-100); HDL Cholesterol 46 mg/dl (40-60); Potassium 3.7 mmoL/L (3.5-5.1); Sodium 140 mmol/L (136-145); Triglycerides 179 mg/dl (30-150); VLDL Cholesterol 36 mg/dL (0-40)
[2023-09-09 19:43] LABS: Direct LDL Cholesterol 153.86 mg/dL (100-129)
[2023-09-09 19:47] LABS: 25-OH Vitamin D, Total 33.5 ng/mL (30-100)
[2023-09-09 20:03] LABS: Prostate Specific Ag Screen 0.3 ng/ml (0.0-4.0); Thyroid Stimulating Hormone 0.91 uIU/mL (0.465-4.68)
[2023-09-11 08:46] LABS: Testosterone,Total 171 ng/dL (264-916)
== END 2023-09-09 23:59 | disposition home or self-care (01) ==
LOC: LAB.DROPOF 09-10 10:18
PROVIDERS: PCP Nurse Practitioner Family; Visit Provider Nurse Practitioner Family
DX: I10 Essential (primary) hypertension (principal); Z72.0 Tobacco use; E66.9 Obesity, unspecified; Z68.39 Body mass index [BMI] 39.0-39.9, adult; N52.9 Male erectile dysfunction, unspecified; M54.50 Low back pain, unspecified; G89.29 Other chronic pain
CPT/HCPCS: 80050; 80053; 80061; 82306; 84403; 84443; 85025; G0103

== ENCOUNTER 2024-07-27 16:37 | Outpatient (CLI) | payer MEDICAID, SELFPAY ==
[2024-07-27 18:10] LABS: Basophils # 0.1 K/mm3 (0-0.2); Basophils % 1.1 % (0.1-2.0); Eosinophils # 0.2 Kmm3 (0.0-0.4); Eosinophils % 3.2 % (0.1-12.0); Hematocrit 47.5 % (42.0-52.0); Hemoglobin 16.6 g/dL (14.1-18.0); Immature Granulocytes # 0.02 10^3uL; Immature Granulocytes % 0.3 %; Lymphocytes # 2.9 K/mm3 (0.7-4.5); Lymphocytes % 39.1 % (10-50); Mean Corpuscular HGB Conc 34.9 g/dL (31.8-35.4); Mean Corpuscular Hemoglobin 31.1 pg (27.0-31.2); Mean Platelet Volume 9.2 fl (7.4-10.4); Monocytes # 0.6 K/mm3 (0.1-1.0); Monocytes % 7.8 % (1.7-9.3); Neutrophils # 3.6 K/mm3 (1.8-7.8); Neutrophils % 48.5 % (37.0-80.0); Nucleated Red Blood Cells # 0 10^3/uL; Nucleated Red Blood Cells % 0 %; Platelet Count 257 K/mm3 (142-424); Red Blood Count 5.34 M/mm3 (4.60-6.20); Red Cell Distribution Width 12.2 % (11.5-17.5); Red Cell Distribution Width-SD 39.9 fL; White Blood Count 7.4 K/mm3 (4.8-10.8)
[2024-07-27 19:29] LABS: Alanine Aminotransferase 24 U/L (12-78); Albumin Level 4.3 g/dl (3.5-5.0); Albumin/Globulin Ratio 1.7 (1.1-1.8); Alkaline Phosphatase 77 U/L (38-126); Anion Gap 8.3 mEq/L (5-15); Aspartate Amino Transferase 27 U/L (17-59); Bilirubin,Total 0.7 mg/dl (0.2-1.3); Blood Urea Nitrogen 19 mg/dl (9-20); Calcium 9.3 mg/dl (8.4-10.2); Carbon Dioxide 26 mmol/L (22.0-30.0); Chloride 108 mmol/L (98-107); Chol/HDL Ratio 5.3 (1-3.5); Cholesterol 221 mg/dl (140-200); Estimated Glomerular Filt Rate 117 ml/min (>60); GFR (African American) 142 ML/MIN (>60); Globulin 2.6 g/dL (1.3-3.2); Glucose 119 mg/dl (74-100); HDL Cholesterol 42 mg/dl (40-60); Potassium 4.3 mmoL/L (3.5-5.1); Sodium 138 mmol/L (136-145); Total Protein,Serum 6.9 g/dl (6.3-8.2); Triglycerides 204 mg/dl (30-150); VLDL Cholesterol 41 mg/dL (0-40)
[2024-07-27 19:40] LABS: Direct LDL Cholesterol 143.52 mg/dL (100-129)
[2024-07-27 19:47] LABS: 25-OH Vitamin D, Total 33.7 ng/mL (30-100)
[2024-07-27 21:59] LABS: Thyroid Stimulating Hormone 1.48 uIU/mL (0.465-4.68)
== END 2024-07-27 23:59 | disposition home or self-care (01) ==
LOC: LAB.DROPOF 07-28 11:04
PROVIDERS: PCP Nurse Practitioner Family; Visit Provider Nurse Practitioner Family
DX: M54.50 Low back pain, unspecified (principal); I10 Essential (primary) hypertension; E66.9 Obesity, unspecified
CPT/HCPCS: 80053; 80061; 82306; 84403; 84443; 85025

== ENCOUNTER 2024-08-19 20:17 | Outpatient (CLI) | payer MEDICAID, SELFPAY ==
[2024-08-28 01:11] LABS: Testosterone, Total, LC/MS 161 ng/dL (.)
== END 2024-08-19 23:59 | disposition home or self-care (01) ==
LOC: LAB 20:18
PROVIDERS: PCP Nurse Practitioner Family; Visit Provider Nurse Practitioner Family
DX: R79.89 Other specified abnormal findings of blood chemistry (principal)
CPT/HCPCS: 84403

== ENCOUNTER → 2024-09-15 07:58 | Outpatient (CLI) | payer MEDICAID, SELFPAY | LOC: SL 07:59 | PROVIDERS: PCP Nurse Practitioner Family; Visit Provider Nurse Practitioner Family | DX: G47.33 Obstructive sleep apnea (adult) (pediatric) (principal); G47.36 Sleep related hypoventilation in conditions classified elsewhere | CPT/HCPCS: G0399 ==